=== PATIENT | female | born 1985 | race Caucasian/White ===

== ENCOUNTER → 2016-07-30 | Day surgery (SDC) | payer OTHER ==
[~2016-07-30] VITALS: Ht 157.5 cm; Wt 43.5 kg
[~2016-07-30] MED LIST: IBUPROFEN800 MG PO; PRENATAL1 TA2 PO
--- NOTE | 2016-08-06 12:22 | Operative Report ---
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 Post-Operative Diagnosis: Same Estimated Blood Loss: less than 50ml Surgeon/Hospital Clerk: RANDY JACOBO MD Anesthesia: moderate sedation Operative/Procedure Note Note: Patient was taken to the operating room placed supine position after adequate anesthesia patient placed in dorsolithotomy position the vagina from dorsal fashion bladder was catheterized examination under anesthesia performed I at this point the CO2 tenaculum was placed on the Intralipid cervix a block of Marcaine was made with 3 and 9 a stay suture [id number] was placed at 3 and 9 on the cervix at this point with the LEEP probe a Thomas was obtained hemostasis was apparent endocervical curettage was obtained after the LEEP rollerball technique was used for hemostasis advancements removed from the vagina some Bobo was applied to the cervical defect on hemostasis was apparent patient was returned spine position awakened from anesthesia and transported to recovery room awake alert with counts correct
== END ==
LOC: STS 04:19
DX: R87.613 High grade squamous intraepithelial lesion on cytologic smear of cervix (HGSIL) (principal); N94.2 Vaginismus
CPT/HCPCS: 81025; 88305; 88307; J0131; J2250